=== PATIENT | male | born 1945 | race Caucasian/White ===

== ENCOUNTER 2018-07-29 17:34 | Emergency (ER) | payer MEDICARE ==
[~2018-07-29 17:34] MED LIST: Morphine 10 MG/ML CARPUJECT ONE
== END 2018-07-29 18:49 | disposition home or self-care (01) ==
LOC: MADERS 17:34
DX: R33.9 Retention of urine, unspecified (principal); I10 Essential (primary) hypertension; E78.5 Hyperlipidemia, unspecified; E11.9 Type 2 diabetes mellitus without complications; F32.9 Major depressive disorder, single episode, unspecified; Z79.82 Long term (current) use of aspirin; Z79.899 Other long term (current) drug therapy
CPT/HCPCS: 51702; 96372; J2270

== ENCOUNTER 2018-07-30 09:54 | Emergency (ER) | payer MEDICARE | END 2018-07-30 11:02 | disposition home or self-care (01) | LOC: MADERS 09:54 | DX: Z46.6 Encounter for fitting and adjustment of urinary device (principal); R33.9 Retention of urine, unspecified; E78.5 Hyperlipidemia, unspecified; E11.40 Type 2 diabetes mellitus with diabetic neuropathy, unspecified; I10 Essential (primary) hypertension | CPT/HCPCS: 51702 ==

== ENCOUNTER 2020-07-30 23:00 | Emergency (ER) | payer OTHER ==
[2020-07-30 23:48] LABS: #Basophils 0.1 thou/uL (0.0-0.2); #Lymphocytes 0.6 thou/uL (1.20-3.40); #Monocytes 0.6 thou/uL (0.11-0.59); #Neutrophils 12.2 thou/uL (1.40-6.50); %Basophils 0.4 % (0.0-1.0); %Eosinophils 0.2 % (0.0-10.0); %Lymphocytes 4.4 % (21.0-51.0); %Monocytes 4.6 % (0.0-10.0); %Neutrophils 90.4 % (42.0-75.0); Hemoglobin 15.6 g/dL (14.0-18.0); Mean Corpuscular HGB CONC 33.8 g/dL (32.0-36.0); Mean Corpuscular Hemoglobin 29.4 pg (27.0-31.0); Mean Corpuscular Volume 86.9 fL (78.0-98.0); Mean Platelet Volume 6.6 fL (7.4-10.4); Platelet Count 259 thou/uL (130-400); RBC Distribution Width 11.5 % (11.5-14.5); White Blood Cell (WBC) Count 13.5 thou/uL (4.8-10.8)
[2020-07-31 00:03] LABS: ALT (SGPT) 119 U/L (8-55); AST (SGOT) 271 U/L (5-34); Albumin 4.5 g/dL (3.4-4.8); Alkaline Phosphatase 94 U/L (40-110); Anion Gap 20 mmol/L (10-20); BUN (Urea Nitrogen) 13 mg/dL (8.4-25.7); Bilirubin, Total 1.8 mg/dL (0.2-1.2); CK (CPK) 56 U/L (30-200); Calc. Creatinine Clearance 0 mL/min (70-130); Calcium 9.6 mg/dL (7.8-10.44); Carbon Dioxide 31 mmol/L (23-31); Chloride 91 mmol/L (98-107); Estimated GFR-MDRD 70; Globulin 3.4 g/dL (2.4-3.5); Glucose 296 mg/dL (83-110); Potassium 3.6 mmol/L (3.5-5.1); Protein, Total 7.9 g/dL (5.8-8.1); Sodium 138 mmol/L (136-145)
[2020-07-31 00:05] LABS: CKMB 1.2 ng/mL (0-6.6)
[2020-07-31] MEDS ORDERED: Aspirin Chewable 81 MG TAB ONE (01:11)
[2020-07-31] MEDS ORDERED: Sodium Chloride 0.9% 1,000 ML ONE (01:26)
[2020-07-31] MEDS ORDERED: Piperacillin/Tazobactam 4.5 GM VIAL ONE (01:38)
[2020-07-31] MEDS ORDERED: Sodium Chloride 0.9% 100 ML ONE (01:38)
--- NOTE | 2020-07-31 08:03 | CT ---
PRELIMINARY REPORT/[facility]/EMERGENCY AFTER HOURS PROCEDURE EXAM: CT Abdomen and Pelvis with Intravenous Contrast CLINICAL HISTORY: ABD/BACK PAIN. Upper abdominal pain/ "gassy feeling", now in upper back. TECHNIQUE: Axial computed tomography images of the abdomen and pelvis with intravenous contrast. CONTRAST: With; 90 ml ISOVUE [id number] COMPARISON: None provided. FINDINGS: LUNG BASES: No basilar airspace consolidation or pleural effusion. Emphysematous changes with right lower lobe f ibrotic change. LIVER: Unremarkable. GALLBLADDER AND BILE DUCTS: Gallbladder is distended. No calcified stone. No ductal dilation. PANCREAS: Ill-defined hazy mesenteric attenuation in the pancreatic head and third segment of the duodenum. SPLEEN: Unremarkable. ADRENAL GLANDS: Unremarkable. KIDNEYS, URETERS, AND BLADDER: Multiple bilateral simple renal cysts. No hydronephrosis or nephrolithiasis. No ureterolithiasis. R ounded 2.2 x 2 cm calcification in the posterior left aspect of the urinary bladder. STOMACH AND BOWEL: No obstruction. No wall thickening. No CT evidence of colitis or acute diverticulitis. APPENDIX: No CT evidence for appendicitis. PERITONEUM: No free fluid. No free air. LYMPH NODES: No lymphadenopathy. REPRODUCTIVE: Markedly distended prostate gland indenting the base of the bladder. VASCULATURE: No aortic aneurysm. Scattered atherosclerotic vascular calcification of the aorta and peripheral bra nching vessels to include the coronary arteries. BONES: No fracture or suspicious osseous abnormality. Moderate multilevel degenerative changes of the spine . ABDOMINAL WALL AND SOFT TISSUES: Unremarkable. IMPRESSION: 1. There is subtle peripancreatic stranding centered at the pancreatic head and third segment of the duodenum which may represent acute pancreatitis. Correlate with lipase levels. 2. Distended gallbladder without calcified stone. Recommend right upper quadrant ultrasound. 3. Rounded urinary bladder calcification/stone measuring 2.2 x 2 cm. No hydroureteronephrosis. 4. Massive prostatomegaly indenting the base of the bladder. 5. Coronary artery atherosclerotic disease to include the peripheral vessels/aorta. ELECTRONICALLY SIGNED BY: Jessee Chen DO Jul 31, 2020 12:57:07 AM CDT This report is intended for review by the ordering physician only, in accordance of law. If you recei ve this report in error, please call [facility] at [phone]. FINAL REPORT EMERGENT AFTER HOURS CT ABDOMEN AND PELVIS WITH IV CONTRAST: HISTORY: Upper abdominal pain which is now extending into upper back. Gassy feeling. COMPARISON: None. IMPRESSION: 1. Mild inflammatory stranding seen adjacent to the pancreatic head may be secondary to pancreatitis. Correlation with pancreatic enzymes is recommended. 2. A 1.6 cm hypodense cystic appearing lesion is seen in the distal body of the pancreas. Follow-up M [facility] abdomen in 6 months is recommended. 3. Bilateral renal cysts largest in the superior pole right kidney measuring 3.2 cm. 4. Mild scarring left kidney which is also slightly smaller in size compared to the right. 5. Subcentimeter too small to characterize hypodense lesion anterior aspect dome of the liver. 6. Large urinary bladder calculus measuring 2.1 cm. 7. Marked enlargement of the prostate gland which measures 7.4 cm in transverse dimensions. This resu lts in mass effect on the base of the urinary bladder. 8. Prominent vascular calcifications including coronary artery calcifications and vascular calcificat ions in the abdominal aorta and iliac arteries. 9. Mild distention of the gallbladder. Right upper quadrant ultrasound may be helpful for further rafy luation. 10. Findings are in disagreement with the preliminary report by [facility]. The pancreatic cyst ic lesion was not mentioned on the preliminary report and and follow-up MRI in 6 months is recommended. However, this finding was discussed with EN Loja in the emergency department on at 0802 hours. Transcribed Date/Time: 07/31/2020 8:39 AM
--- NOTE | 2020-07-31 08:06 | RAD ---
EXAM: CHEST ONE VIEW HISTORY: Chest pain COMPARISON: 08/14/2016 FINDINGS: The cardiac silhouette and pulmonary vasculature are within normal limits. Mild elevation right hemid iaphragm is again present. Lungs remain clear. Degenerative changes are seen in the spine. Vascular calcifications are again seen in the thoracic aorta. IMPRESSION: No acute cardiopulmonary process.
== END 2020-07-31 02:30 | disposition short-term general hospital (02) ==
LOC: MADERS 23:00
DX: K85.90 Acute pancreatitis without necrosis or infection, unspecified (principal); N21.0 Calculus in bladder; K82.8 Other specified diseases of gallbladder; N40.0 Benign prostatic hyperplasia without lower urinary tract symptoms; J44.9 Chronic obstructive pulmonary disease, unspecified; E78.5 Hyperlipidemia, unspecified; E78.00 Pure hypercholesterolemia, unspecified; I10 Essential (primary) hypertension; F32.9 Major depressive disorder, single episode, unspecified; Z79.899 Other long term (current) drug therapy
CPT/HCPCS: 36415; 71045; 74177; 80053; 82150; 82550; 82553; 83690; 83880; 84484; 85025; 93005; 94760; 96365; J2543; J3490; J7050

== ENCOUNTER 2021-06-30 12:00 | Emergency (ER) | payer MEDICARE, OTHER | END 2021-06-30 13:16 | disposition home or self-care (01) | LOC: MADERS 12:00 | DX: Z00.00 Encounter for general adult medical examination without abnormal findings (principal); J44.9 Chronic obstructive pulmonary disease, unspecified; I10 Essential (primary) hypertension; E78.5 Hyperlipidemia, unspecified; E78.00 Pure hypercholesterolemia, unspecified; G62.9 Polyneuropathy, unspecified | CPT/HCPCS: 99282 ==

== ENCOUNTER 2021-07-04 15:20 | Emergency (ER) | payer MEDICARE ==
[2021-07-04 16:33] LABS: #Basophils 0.1 thou/uL (0.0-0.2); #Neutrophils 13.4 thou/uL (1.40-6.50); %Eosinophils 0.1 % (0.0-10.0); %Lymphocytes 6.3 % (21.0-51.0); %Monocytes 6.3 % (0.0-10.0); %Neutrophils 86.3 % (42.0-75.0); Hemoglobin 16.2 g/dL (14.0-18.0); Mean Corpuscular HGB CONC 31.6 g/dL (32.0-36.0); Mean Corpuscular Hemoglobin 28.5 pg (27.0-31.0); Mean Corpuscular Volume 90.2 fL (78.0-98.0); Mean Platelet Volume 6.3 fL (7.4-10.4); Platelet Count 371 thou/uL (130-400); RBC Distribution Width 12.2 % (11.5-14.5); Red Blood Cell (RBC) Count 5.67 mill/uL (4.70-6.10); White Blood Cell (WBC) Count 15.5 thou/uL (4.8-10.8)
[2021-07-04 16:45] LABS: ALT (SGPT) 15 U/L (8-55); AST (SGOT) 8 U/L (5-34); Albumin 3.7 g/dL (3.4-4.8); Alkaline Phosphatase 130 U/L (40-110); Anion Gap 15 mmol/L (10-20); BUN (Urea Nitrogen) 31 mg/dL (8.4-25.7); Bilirubin, Total 0.7 mg/dL (0.2-1.2); CK (CPK) 30 U/L (30-200); Calc. Creatinine Clearance 0 mL/min (70-130); Calcium 10.2 mg/dL (7.8-10.44); Carbon Dioxide 34 mmol/L (23-31); Chloride 88 mmol/L (98-107); Globulin 3.1 g/dL (2.4-3.5); Glucose 512 mg/dL (83-110); Potassium 4.3 mmol/L (3.5-5.1); Protein, Total 6.8 g/dL (5.8-8.1); Sodium 133 mmol/L (136-145)
[2021-07-04] MEDS ORDERED: Sodium Chloride 0.9% 1,000 ML ONE (17:00)
[2021-07-04] MEDS ORDERED: Insulin Regular 300 UNITS/3 ML VIAL ONE (18:13)
== END 2021-07-04 20:15 | disposition home or self-care (01) ==
LOC: MADERS 15:20
DX: U07.1 COVID-19 (principal); E11.65 Type 2 diabetes mellitus with hyperglycemia; E11.40 Type 2 diabetes mellitus with diabetic neuropathy, unspecified; Z71.6 Tobacco abuse counseling; J44.9 Chronic obstructive pulmonary disease, unspecified; E78.5 Hyperlipidemia, unspecified; E78.00 Pure hypercholesterolemia, unspecified; I10 Essential (primary) hypertension; Z79.899 Other long term (current) drug therapy; Z79.82 Long term (current) use of aspirin
CPT/HCPCS: 36415; 36416; 71045; 80053; 82550; 84484; 85025; 86140; 94760; 96374; J1815; J7050

== ENCOUNTER 2021-07-18 19:53 | Emergency (ER) | payer MEDICARE ==
[2021-07-18] MEDS ORDERED: Sodium Chloride 0.9% 1,000 ML ONE ×2 (20:17→23:06)
[2021-07-18] MEDS ORDERED: Enoxaparin Sodium 80 MG/0.8 ML SYRINGE ONE (20:36)
[2021-07-18] MEDS ORDERED: Diltiazem 125 MG/25 ML ONE (20:36)
[2021-07-18 20:38] LABS: #Eosinphils 0.1 thou/uL (0.0-0.7); #Monocytes 0.7 thou/uL (0.11-0.59); #Neutrophils 8.4 thou/uL (1.40-6.50); %Basophils 0.3 % (0.0-1.0); %Eosinophils 0.8 % (0.0-10.0); %Lymphocytes 9.8 % (21.0-51.0); %Monocytes 7.2 % (0.0-10.0); Hemoglobin 11.5 g/dL (14.0-18.0); Mean Corpuscular HGB CONC 32.3 g/dL (32.0-36.0); Mean Corpuscular Volume 89.7 fL (78.0-98.0); Mean Platelet Volume 5.6 fL (7.4-10.4); Platelet Count 286 thou/uL (130-400); RBC Distribution Width 12.3 % (11.5-14.5); Red Blood Cell (RBC) Count 3.96 mill/uL (4.70-6.10); White Blood Cell (WBC) Count 10.2 thou/uL (4.8-10.8)
[2021-07-18] MEDS ORDERED: Dextrose 5% in Water 100 ML ONE (20:38)
[2021-07-18 20:56] LABS: ALT (SGPT) 14 U/L (8-55); AST (SGOT) 14 U/L (5-34); Albumin 2.7 g/dL (3.4-4.8); Alkaline Phosphatase 61 U/L (40-110); Anion Gap 17 mmol/L (10-20); BUN (Urea Nitrogen) 62 mg/dL (8.4-25.7); Bilirubin, Total 0.6 mg/dL (0.2-1.2); Calc. Creatinine Clearance 0 mL/min (70-130); Carbon Dioxide 28 mmol/L (23-31); Chloride 94 mmol/L (98-107); Globulin 2.1 g/dL (2.4-3.5); Glucose 228 mg/dL (83-110); Potassium 3.5 mmol/L (3.5-5.1); Protein, Total 4.8 g/dL (5.8-8.1); Sodium 135 mmol/L (136-145)
[2021-07-18] MEDS ORDERED: Aspirin Chewable 81 MG TAB ONE (21:19)
== END 2021-07-19 00:09 | disposition short-term general hospital (02) ==
LOC: MADERS 19:53
DX: I48.92 Unspecified atrial flutter (principal); N17.9 Acute kidney failure, unspecified; E11.9 Type 2 diabetes mellitus without complications; E78.5 Hyperlipidemia, unspecified; I10 Essential (primary) hypertension; J44.9 Chronic obstructive pulmonary disease, unspecified; F17.220 Nicotine dependence, chewing tobacco, uncomplicated; Z79.899 Other long term (current) drug therapy
CPT/HCPCS: 36415; 71045; 80053; 82553; 83880; 84484; 85025; 93005; 96365; 96366; 96372; 96376; J1650; J7050; J7070

== ENCOUNTER 2021-08-12 18:33 | Outpatient (CLI) | payer MEDICARE ==
[2021-08-12 19:05] LABS: Bilirubin Negative (Negative); Blood, Urine Moderate (Negative); Glucose, Urine (Dipstick) Negative (Negative); Ketone, Urine Negative (Negative); Leukocyte Moderate (Negative); Nitrite Negative (Negative); Protein, Urine (Dipstick) > or equal to 300 mg/dL (Neg-Trace); Urobilinogen 0.2 mg/dL (Less than 2); pH, Urine 5.5 (5.0-9.0)
[2021-08-12 19:06] LABS: Clarity Cloudy (Clear)
[2021-08-12 19:07] LABS: Bacteria/HPF Rare-Few HPF (None Seen); WBC/HPF Greater Than 50 HPF (0-3)
== END 2021-08-12 18:34 | disposition home or self-care (01) ==
LOC: MADLAB 18:33
PROVIDERS: ATTEND Nurse Practitioner Family
DX: I10 Essential (primary) hypertension (principal)
CPT/HCPCS: 81003; 81015